=== PATIENT | male | born 1990 | race Caucasian/White ===

== ENCOUNTER 2016-09-15 17:40 | Inpatient (IN) | payer OTHER ==
[2016-09-15 18:27] VITALS: BMI 20.7
--- NOTE | 2016-09-15 18:40 | HP ---
COWS - Scale Resting Pulse: 2= SD 101-120 Sweatin=Flushed/Facial Moisture Restless Observation: 1= Difficult to Sit Still Pupil Size: 2= Moderately Dilated Bone or Joint Aches: 2= Severe Diffuse Aches Runny Nose/ Eye Tearin= Runny Nose/Eyes GI Upset > 30mins: 2= Nausea/Diarrhea Tremor Observation: 2= Slight Tremor Visible Yawning Observation: 1= 1-2x During Session Anxiety or Irritability: 2=Irritable/Anxious Goose Flesh Skin: 0=Smooth Skin COWS Score: 18 Admission ROS S - HPI Chief Complaint: withdrawal sx. Allergies/Adverse Reactions: Allergies Allergy/AdvReac Type Severity Reaction Status Date / Time No Known Allergies Allergy Verified 01/08/16 14:26 History of Present Illness: 26 y/o man with a long hx. of drug dependence is admitted for detox.Pt. has been in previous detox,denies significant period drug free. Exam Limitations: No Limitations - Ebola screening Have you traveled outside of the country in the last 21 days: No Have you had contact with anyone from an Ebola affected area: No Have you been sick,other than usual withdrawal symptoms: No Do you have a fever: No - Review of Systems Constitutional: Diaphoresis EENT: reports: Nose Congestion Respiratory: reports: No Symptoms reported Cardiac: reports: No Symptoms Reported GI: reports: Nausea, Abdominal cramping : reports: No Symptoms Reported Musculoskeletal: reports: Back Pain, Joint Pain, Muscle Pain Integumentary: reports: Sweating Neuro: reports: Tingling Endocrine: reports: No Symptoms Reported Hematology: reports: No Symptoms Reported Psychiatric: reports: No Sypmtoms Reported Other Systems: Reviewed and Negative Patient History - Patient Medical History Hx Anemia: No Hx Asthma: No Hx Chronic Obstructive Pulmonary Disease (COPD): No Hx Cancer: No Hx Cardiac Disorders: No Hx Congestive Heart Failure: No Hx Hypertension: No Hx Hypercholesterolemia: No Hx Pacemaker: No HX Cerebrovascular Accident: No Hx Seizures: No Hx Dementia: No Hx Diabetes: No Hx Gastrointestinal Disorders: No Hx Liver Disease: No Hx Genitourinary Disorders: No Hx Sexually Transmitted Disorders: No Hx Renal Disease (ESRD): No Hx Thyroid Disease: No Hx Human Immunodeficiency Virus (HIV): No Hx Hepatitis C: No Hx Depression: No Hx Suicide Attempt: No Hx Bipolar Disorder: No Hx Schizophrenia: No - Patient Surgical History Past Surgical History: Yes Hx Neurologic Surgery: No Hx Cataract Extraction: No Hx Cardiac Surgery: No Hx Lung Surgery: No Hx Breast Surgery: No Hx Breast Biopsy: No Hx Abdominal Surgery: No Hx Appendectomy: No Hx Cholecystectomy: No Hx Genitourinary Surgery: No Hx Section: No Hx Orthopedic Surgery: No Other Surgical History: HERNIA REPAIR AT AGE 3 Anesthesia Reaction: No - PPD History Previous Implant?: Yes Documented Results: Negative w/proof Implanted On Prior [facility] Admission?: Yes Date: 01/10/16 Results: 0 mm PPD to be Administered?: No - Smoking Cessation Smoking history: Current every day smoker Have you smoked in the past 12 months: Yes Aproximately how many cigarettes per day: 20 Hx Chewing Tobacco Use: No Initiated information on smoking cessation: Yes 'Breaking Loose' booklet given: 09/15/16 - Substance & Tx. History Hx Alcohol Use: No Hx Substance Use: Yes Substance Use Type: Heroin Hx Substance Use Treatment: Yes (Detox) - Substances Abused Heroin Route: Injection Frequency: Daily Amount used: 20 bags Age of first use: 26 (Started June 2016) Date of Last Use: 09/15/16 Oxycontin Route: Oral Amount used: 450mg Age of first use: 21 Family Disease History - Family Disease History Family Disease History: Diabetes: Father, Heart Disease: Grandparent (HTN, MELANOMA?,ALCOHOL), [place]: Grandparent Admission Physical Exam BHS - Vital Signs Vital Signs: Vital Signs - 24 hr 09/15/16 18:22 Temperature 97.9 F Pulse Rate 118 H Respiratory 16 Rate Blood Pressure 109/74 - Physical General Appearance: Yes: Sweating, Anxious HEENTM: Yes: Nasal Congestion, Rhinorrhea Respiratory: Yes: Chest Non-Tender, Lungs Clear, Normal Breath Sounds Neck: Yes: Supple Breast: Yes: Breast Exam Deferred Cardiology: Yes: Regular Rhythm, Regular Rate, S1, S2 Abdominal: Yes: Normal Bowel Sounds, Non Tender, Soft Genitourinary: Yes: Within Normal Limits Back: Yes: Within Normal Limits Musculoskeletal: Yes: full range of Motion Extremities: Yes: Tremors Neurological: Yes: Fully Oriented, Alert Integumentary: Yes: Diaphoresis Lymphatic: Yes: Within Normal Limits - Diagnostic (1) Nicotine dependence Current Visit: Yes Status: Acute Qualifiers: Nicotine product type: cigarettes Substance use status: uncomplicated Qualified Code(s): F17.210 - Nicotine dependence, cigarettes, uncomplicated (2) Opioid dependence with withdrawal Current Visit: Yes Status: Acute Cleared for Admission [facility] - Detox or Rehab [facility] Level of Care: Medically Managed Detox Regimen/Protocol: Methadone [facility] Breath Alcohol Content Breath Alcohol Content: 0 Urine Drug Screen - Results Drug Screen Negative: No Urine Drug Screen Results: OPI-Opiates, MDMA-Ecstasy
[2016-09-15] MEDS ORDERED: LOPERAMIDE HCL 2 MG CAPSULE PO PRN (18:49)
[2016-09-15] MEDS ORDERED: NICOTINE POLACRILEX 2 MG GUM BC PRN (18:49)
[2016-09-15] MEDS ORDERED: diphenhydrAMINE HCL 50 MG CAPSULE PO PRN (18:49)
[2016-09-15] MEDS ORDERED: hydrOXYzine PAMOATE 50 MG CAPSULE (FP) PO PRN (18:49)
[2016-09-15] MEDS ORDERED: IBUPROFEN 400 MG TABLET (FP) PO PRN (18:49)
[2016-09-15] MEDS ORDERED: guaiFENesin/D-METHORPHAN HB 10 ML UNIT-DOSE CUPS PO PRN (18:49)
[2016-09-15] MEDS ORDERED: MENTHOL/PHENOL 1 EACH UD MM PRN (18:49)
[2016-09-15] MEDS ORDERED: P-EPHED 60MG/TRIPROLIDI 2.5MG TABLET PO PRN (18:49)
[2016-09-15] MEDS ORDERED: MAGNESIUM HYDROX 2400MG/30ML ORAL SUSPENSION 30 ML CUP PO PRN (18:49)
[2016-09-15] MEDS ORDERED: MAGNESIUM CITRATE 300 ML BOTTLE PO PRN (18:49)
[2016-09-15] MEDS ORDERED: MAG HYDROX/AL HYDROX/SIMETH 30 ML UNIT-DOSE CUP PO PRN (18:49)
[2016-09-15] MEDS ORDERED: ACETAMINOPHEN 325 MG TABLET (FP) PO PRN (18:49)
[2016-09-15] MEDS ORDERED: METHADONE HCL 10 MG TABLET (FOR DETOX USE ONLY) PO ONE ×2 (18:49→23:00)
[2016-09-15] MEDS: diazePAM 5 MG TABLET PO PRN (20:14)
[2016-09-15] MEDS: NICOTINE 21 MG/24 HOURS TOPICAL PATCH TD SCH (20:17)
[2016-09-15] MEDS ORDERED: THIAMINE HCL 100 MG TABLET (FP) PO SCH (22:00)
[2016-09-16] MEDS: diazePAM 5 MG TABLET PO PRN ×2 (05:25→10:21)
[2016-09-16] MEDS ORDERED: ONDANSETRON *ODT* 4 MG TABLET SL PRN (09:38)
[2016-09-16 09:56] VITALS: BP 131/75; PULSE 83; TEMP 97.3
[2016-09-16] MEDS ORDERED: METHADONE HCL 10 MG TABLET (FOR DETOX USE ONLY) PO ONE (10:00)
[2016-09-16] MEDS ORDERED: PRENATAL VITAMINS W/ FOLIC ACID TABLET (FP) PO SCH (10:00)
[2016-09-16] MEDS ORDERED: ONDANSETRON *ODT* 4 MG TABLET SL ONE (10:00)
[2016-09-16] MEDS: NICOTINE 21 MG/24 HOURS TOPICAL PATCH TD SCH (10:24)
[2016-09-16 10:50] LABS: URINE APPEARANCE CLEAR; URINE BILIRUBIN NEGATIVE (NEGATIVE); URINE BLOOD NEGATIVE (NEGATIVE); URINE COLOR AMBER; URINE GLUCOSE (UA) NEGATIVE (NEGATIVE); URINE KETONE NEGATIVE (NEGATIVE); URINE LEUK ESTERASE NEGATIVE (NEGATIVE); URINE NITRITE NEGATIVE (NEGATIVE); URINE PROTEIN NEGATIVE (NEGATIVE); URINE UROBILINOGEN 4.0 E.U/dl E.U./dl (0.2-1.0)
[2016-09-16 10:54] LABS: MCH 30.9 pg (25.7-33.7); MCHC 34.2 g/dl (32.0-35.9); MEAN CELL VOLUME 90.5 fl (80-96); MEAN PLT VOLUME 10.5 fl (7.5-11.1); PLATELET COUNT 99 K/MM3 (134-434); RDW 13.2 % (11.9-15.9)
[2016-09-16 11:15] LABS: ALBUMIN 3.7 g/dl (3.4-5.0); ALK PHOS 57 U/L (45-117); ANION GAP 7 (8-16); BILIRUBIN,TOTAL 0.8 mg/dL (0.2-1.0); CALCIUM 8.5 mg/dL (8.5-10.1); CO2 32 mmol/L (21-32); COCKROFT - GAULT 119; CREATININE 0.9 mg/dL (0.7-1.3); GLUCOSE,RANDOM 93 mg/dL (74-106); SGOT/AST 27 U/L (15-37); SGPT/ALT 32 U/L (12-78); TOT PROT 7.2 g/dl (6.4-8.2)
--- NOTE | 2016-09-16 11:58 | PN ---
BHS COWS - Scale Resting Pulse: 1= [place] 81-100 Sweatin=Flushed/Facial Moisture Restless Observation: 1= Difficult to Sit Still Pupil Size: 0= Normal to Room Light Bone or Joint Aches: 2= Severe Diffuse Aches Runny Nose/ Eye Tearin= Runny Nose/Eyes GI Upset > 30mins: 2= Nausea/Diarrhea Tremor Observation of Outstretched Hands: 2= Slight Tremor Visible Yawning Observation: 1= 1-2x During Session Anxiety or Irritability: 2=Irritable/Anxious Goose Flesh Skin: 0=Smooth Skin COWS Score: 15 BHS Progress Note (SOAP) Subjective: Anxiety,tremors,sweating,interrupted sleep,restless,nausea/vomiting Objective: 09/16/16 11:57 Vital Signs - 8 hr 09/16/16 09/16/16 09/16/16 04:32 06:00 09:55 Temperature 97.7 F 97.3 F L Pulse Rate 87 83 Respiratory 18 18 16 Rate Blood Pressure 131/78 131/75 Laboratory Tests 09/16/16 09/16/16 09/16/16 07:45 07:45 10:42 WBC 5.0 RBC 5.07 Hgb 15.7 Hct 45.9 MCV 90.5 MCHC 34.2 RDW 13.2 Plt Count 99 L MPV 10.5 Sodium 141 Potassium 3.9 Chloride 102 Carbon Dioxide 32 Anion Gap 7 L BUN 9 D Creatinine 0.9 Creat Clearance w eGFR > 60 Random Glucose 93 Calcium 8.5 Total Bilirubin 0.8 D AST 27 D ALT 32 D Alkaline Phosphatase 57 D Total Protein 7.2 Albumin 3.7 Urine Color Beti Urine Appearance Clear Urine pH 6.0 Urine Protein Negative Urine Glucose (UA) Negative Urine Ketones Negative Urine Blood Negative Urine Nitrite Negative Urine Bilirubin Negative Urine Urobilinogen 4.0 e.u/dl Ur Leukocyte Esterase Negative labs noted Assessment: 09/16/16 11:58 Withdrawal sx Plan: Continue detox
--- NOTE | 2016-09-16 16:36 | EKG ---
Test Reason : Blood Pressure : / mmHG Vent. Rate : 059 BPM Atrial Rate : 059 BPM P-R Int : 118 ms QRS Dur : 088 ms QT Int : 440 ms P-R-T Axes : 020 054 021 degrees QTc Int : 435 ms SINUS BRADYCARDIA OTHERWISE NORMAL ECG NO PREVIOUS ECGS AVAILABLE Confirmed by JANE MONTEMAYOR MD ([id number]) on 09/16/2016 4:36:28 PM Referred By: Confirmed By:JANE MONTEMAYOR MD
--- NOTE | 2016-09-16 18:34 | DS ---
[facility] Detox Discharge Summary Admission Date: 09/15/16 Discharge Date: 09/16/16 - History Present History: Opioid Dependence Pertinent Past History: Denies - Physical Exam Results Vital Signs: Vital Signs Temperature 97.3 F L 09/16/16 09:55 Pulse Rate 83 09/16/16 09:55 Respiratory Rate 16 09/16/16 09:55 Blood Pressure 131/75 09/16/16 09:55 O2 Sat by Pulse Oximetry (%) Pertinent Admission Physical Exam Findings: Withdrawal sx. Laboratory Last Values WBC 5.0 K/mm3 (4.0-10.0) 09/16/16 07:45 RBC 5.07 M/mm3 (4.00-5.60) 09/16/16 07:45 Hgb 15.7 GM/dL (11.7-16.9) 09/16/16 07:45 Hct 45.9 % (35.4-49) 09/16/16 07:45 MCV 90.5 fl (80-96) 09/16/16 07:45 MCHC 34.2 g/dl (32.0-35.9) 09/16/16 07:45 RDW 13.2 % (11.9-15.9) 09/16/16 07:45 Plt Count 99 K/MM3 (134-434) L 09/16/16 07:45 MPV 10.5 fl (7.5-11.1) 09/16/16 07:45 Sodium 141 mmol/L (136-145) 09/16/16 07:45 Potassium 3.9 mmol/L (3.5-5.1) 09/16/16 07:45 Chloride 102 mmol/L (98-107) 09/16/16 07:45 Carbon Dioxide 32 mmol/L (21-32) 09/16/16 07:45 Anion Gap 7 (8-16) L 09/16/16 07:45 BUN 9 mg/dL (7-18) D 09/16/16 07:45 Creatinine 0.9 mg/dL (0.7-1.3) 09/16/16 07:45 Creat Clearance w eGFR > 60 (>60) 09/16/16 07:45 Random Glucose 93 mg/dL (74-106) 09/16/16 07:45 Calcium 8.5 mg/dL (8.5-10.1) 09/16/16 07:45 Total Bilirubin 0.8 mg/dL (0.2-1.0) D 09/16/16 07:45 AST 27 U/L (15-37) D 09/16/16 07:45 ALT 32 U/L (12-78) D 09/16/16 07:45 Alkaline Phosphatase 57 U/L (45-117) D 09/16/16 07:45 Total Protein 7.2 g/dl (6.4-8.2) 09/16/16 07:45 Albumin 3.7 g/dl (3.4-5.0) 09/16/16 07:45 Urine Color Beti 09/16/16 10:42 Urine Appearance Clear 09/16/16 10:42 Urine pH 6.0 (5.0-8.0) 09/16/16 10:42 Ur Specific [place] 1.020 (1.005-1.025) 09/16/16 10:42 Urine Protein Negative (NEGATIVE) 09/16/16 10:42 Urine Glucose (UA) Negative (NEGATIVE) 09/16/16 10:42 Urine Ketones Negative (NEGATIVE) 09/16/16 10:42 Urine Blood Negative (NEGATIVE) 09/16/16 10:42 Urine Nitrite Negative (NEGATIVE) 09/16/16 10:42 Urine Bilirubin Negative (NEGATIVE) 09/16/16 10:42 Urine Urobilinogen 4.0 e.u/dl E.U./dl (0.2-1.0) 09/16/16 10:42 Ur Leukocyte Esterase Negative (NEGATIVE) 09/16/16 10:42 RPR Titer Nonreactive (NONREACTIVE) 09/16/16 07:45 labs noted - Treatment Patient has Accepted a Rehab Referral to: IOP - Medication Discharge Medications: Ambulatory Orders NK [No Known Home Medication] 01/08/16 - Diagnosis (1) Nicotine dependence Status: Acute Qualifiers: Nicotine product type: cigarettes Substance use status: uncomplicated Qualified Code(s): F17.210 - Nicotine dependence, cigarettes, uncomplicated (2) Opioid dependence with withdrawal Status: Acute (3) Drug-induced mood disorder Status: Acute
[2016-09-17] MEDS ORDERED: METHADONE HCL 5 MG TABLET (FOR DETOX USE ONLY) PO ONE (10:00)
[2016-09-18] MEDS ORDERED: METHADONE HCL 5 MG TABLET (FOR DETOX USE ONLY) PO ONE (10:00)
[2016-09-19] MEDS ORDERED: METHADONE HCL 10 MG TABLET (FOR DETOX USE ONLY) PO ONE (10:00)
[2016-09-20] MEDS ORDERED: METHADONE HCL 5 MG TABLET (FOR DETOX USE ONLY) PO ONE (06:00)
== END 2016-09-16 11:17 | disposition left against medical advice (07) | DRG 770 ==
LOC: YASAS 17:40 → Y6N 19:30
PROVIDERS: ADMIT Internal Medicine; ATTEND Internal Medicine
PROC: HZ2ZZZZ Detoxification Services for Substance Abuse Treatment (ICD-10-PCS; principal; 2016-09-16)
DX: F11.23 Opioid dependence with withdrawal (principal); F17.210 Nicotine dependence, cigarettes, uncomplicated; F19.24 Other psychoactive substance dependence with psychoactive substance-induced mood disorder
CPT/HCPCS: 36415; 80053; 81003; 85027; 86593; 93005; 93010

== ENCOUNTER 2016-12-26 15:09 | Inpatient (IN) | payer OTHER ==
[2016-12-26 16:34] VITALS: BMI 20.9
--- NOTE | 2016-12-26 19:38 | HP ---
COWS - Scale Resting Pulse: 0= [place] 80 or Below Sweatin= Chills/Flushing Restless Observation: 1= Difficult to Sit Still Pupil Size: 0= Normal to Room Light Bone or Joint Aches: 2= Severe Diffuse Aches Runny Nose/ Eye Tearin= Runny Nose/Eyes GI Upset > 30mins: 1= Stomach Cramp Tremor Observation: 2= Slight Tremor Visible Yawning Observation: 0= None Anxiety or Irritability: 2=Irritable/Anxious Goose Flesh Skin: 3=Piloerection COWS Score: 14 Admission ROS S - [facility] Chief Complaint: WITHDRAWAL SX Allergies/Adverse Reactions: Allergies Allergy/AdvReac Type Severity Reaction Status Date / Time No Known Allergies Allergy Verified 01/08/16 14:26 History of Present Illness: 26 YEARS OLD MALE WITH LONG HISTORY OF OPIATE NICOTINE DEPENDENCE DENIES MEDICAL ISSUE DENIES MENTAL ILLNESS IS ADMITTED TO DETOX Exam Limitations: No Limitations - Ebola screening Have you traveled outside of the country in the last 21 days: No Have you had contact with anyone from an Ebola affected area: No Have you been sick,other than usual withdrawal symptoms: No Do you have a fever: No - Review of Systems Constitutional: Loss of Appetite, Changes in sleep, Unintentional Wgt. Loss, Unexplained wgt Loss EENT: reports: No Symptoms Reported Respiratory: reports: No Symptoms reported Cardiac: reports: No Symptoms Reported GI: reports: Nausea, Poor Appetite, Poor Fluid Intake, Abdominal cramping : reports: No Symptoms Reported Musculoskeletal: reports: Back Pain, Joint Pain, Muscle Pain, Neck Pain Integumentary: reports: Change in Color (BOTH INNER ELBOWS) Neuro: reports: Tremors Endocrine: reports: No Symptoms Reported Hematology: reports: No Symptoms Reported Psychiatric: reports: No Sypmtoms Reported, Judgement Intact, Mood/Affect Appropiate, Orientated x3 Other Systems: Reviewed and Negative Patient History - Patient Medical History Hx Anemia: No Hx Asthma: No Hx Chronic Obstructive Pulmonary Disease (COPD): No Hx Cancer: No Hx Cardiac Disorders: No Hx Congestive Heart Failure: No Hx Hypertension: No Hx Hypercholesterolemia: No Hx Pacemaker: No HX Cerebrovascular Accident: No Hx Seizures: No Hx Dementia: No Hx Diabetes: No Hx Gastrointestinal Disorders: No Hx Liver Disease: No Hx Genitourinary Disorders: No Hx Sexually Transmitted Disorders: No Hx Renal Disease (ESRD): No Hx Thyroid Disease: No Hx Human Immunodeficiency Virus (HIV): No Hx Hepatitis C: No Hx Depression: No Hx Suicide Attempt: No Hx Bipolar Disorder: No Hx Schizophrenia: No - Patient Surgical History Past Surgical History: Yes Hx Neurologic Surgery: No Hx Cataract Extraction: No Hx Cardiac Surgery: No Hx Lung Surgery: No Hx Breast Surgery: No Hx Breast Biopsy: No Hx Abdominal Surgery: No Hx Appendectomy: No Hx Cholecystectomy: No Hx Genitourinary Surgery: No Hx Orthopedic Surgery: No Other Surgical History: HERNIA REPAIR AT AGE 3 Anesthesia Reaction: No - PPD History Previous Implant?: Yes Documented Results: Positive w/proof Implanted On Prior [facility] Admission?: Yes Date: 01/10/16 Results: 0 mm PPD to be Administered?: Yes - Smoking Cessation Smoking history: Current every day smoker Have you smoked in the past 12 months: Yes Aproximately how many cigarettes per day: 20 Cigars Per Day: 0 Hx Chewing Tobacco Use: No Initiated information on smoking cessation: Yes 'Breaking Loose' booklet given: 12/26/16 - Substance & Tx. History Hx Alcohol Use: No Hx Substance Use: Yes Substance Use Type: Cocaine, Heroin Hx Substance Use Treatment: Yes (10/2016 [facility]) - Substances Abused Heroin Route: Injection Frequency: Daily Amount used: 3 bundles Age of first use: 26 Date of Last Use: 12/25/16 Family Disease History - Family Disease History Family Disease History: Diabetes: Father, Heart Disease: Grandparent (HTN, MELANOMA?,ALCOHOL), [place]: Grandparent Admission Physical Exam BHS - Vital Signs Vital Signs: Vital Signs - 24 hr 12/26/16 16:32 Temperature 98.1 F Pulse Rate 80 Respiratory 18 Rate Blood Pressure 109/76 - Physical General Appearance: Yes: Appropriately Dressed, Mild Distress, Thin, Tremorous, Irritable, Sweating, Anxious HEENTM: Yes: Hearing grossly Normal, Normal ENT Inspection, Normocephalic, Normal Voice Respiratory: Yes: Chest Non-Tender, Lungs Clear, Normal Breath Sounds, No Respiratory Distress, No Accessory Muscle Use Neck: Yes: Supple, Trachea in good position Breast: Yes: Breasts Symetrical Cardiology: Yes: Regular Rhythm, Regular Rate, S1, S2 Abdominal: Yes: Non Tender, Soft, Increased Bowel Sounds Genitourinary: Yes: Within Normal Limits Back: Yes: Normal Inspection Musculoskeletal: Yes: full range of Motion, Gait Steady, Back pain, Muscle Pain Extremities: Yes: Normal Range of Motion, Non-Tender, Tremors, Other (INNER ELBOWS) Neurological: Yes: Fully Oriented, Alert, Motor Strength 5/5, Normal Mood/Affect , Normal Response Integumentary: Yes: Warm, Track Reese Lymphatic: Yes: Within Normal Limits - Diagnostic (1) Nicotine dependence Current Visit: Yes Status: Acute Qualifiers: Nicotine product type: cigarettes Substance use status: in withdrawal Qualified Code(s): F17.213 - Nicotine dependence, cigarettes, with withdrawal (2) Opioid dependence with withdrawal Current Visit: Yes Status: Acute (3) Weight loss Current Visit: Yes Status: Acute Cleared for Admission [facility] - Detox or Rehab [facility] Level of Care: Medically Managed Detox Regimen/Protocol: Methadone [facility] Breath Alcohol Content Breath Alcohol Content: 0 Urine Drug Screen - Results Drug Screen Negative: No Urine Drug Screen Results: CARMELITA-Cocaine, OPI-Opiates
[2016-12-26] MEDS ORDERED: ACETAMINOPHEN 325 MG TABLET (FP) PO PRN (19:39)
[2016-12-26] MEDS ORDERED: NICOTINE 21 MG/24 HOURS TOPICAL PATCH TD PRN (19:39)
[2016-12-26] MEDS ORDERED: IBUPROFEN 400 MG TABLET (FP) PO PRN (19:39)
[2016-12-26] MEDS ORDERED: guaiFENesin/D-METHORPHAN HB 10 ML UNIT-DOSE CUPS PO PRN (19:39)
[2016-12-26] MEDS ORDERED: P-EPHED 60MG/TRIPROLIDI 2.5MG TABLET PO PRN (19:39)
[2016-12-26] MEDS ORDERED: MAGNESIUM CITRATE 300 ML BOTTLE PO PRN (19:39)
[2016-12-26] MEDS ORDERED: METHADONE HCL 10 MG TABLET (FOR DETOX USE ONLY) PO ONE ×2 (19:39→23:00)
[2016-12-26] MEDS ORDERED: NICOTINE POLACRILEX 4 MG GUM BC PRN (19:39)
[2016-12-26] MEDS ORDERED: MENTHOL/PHENOL 1 EACH UD MM PRN (19:39)
[2016-12-26] MEDS ORDERED: MAG HYDROX/AL HYDROX/SIMETH 30 ML UNIT-DOSE CUP PO PRN (19:39)
[2016-12-26] MEDS ORDERED: LOPERAMIDE HCL 2 MG CAPSULE PO PRN (19:39)
[2016-12-26] MEDS ORDERED: MAGNESIUM HYDROX 2400MG/30ML ORAL SUSPENSION 30 ML CUP PO PRN (19:39)
[2016-12-26] MEDS: diazePAM 5 MG TABLET PO PRN (19:55)
[2016-12-26] MEDS: THIAMINE HCL 100 MG TABLET (FP) PO SCH (22:02)
[2016-12-26] MEDS: diphenhydrAMINE HCL 50 MG CAPSULE PO PRN (22:02)
[2016-12-27 01:34] LABS: URINE APPEARANCE SLCLOUDY; URINE BILIRUBIN NEGATIVE (NEGATIVE); URINE BLOOD NEGATIVE (NEGATIVE); URINE COLOR YELLOW; URINE GLUCOSE (UA) NEGATIVE (NEGATIVE); URINE KETONE NEGATIVE (NEGATIVE); URINE LEUK ESTERASE NEGATIVE (NEGATIVE); URINE NITRITE NEGATIVE (NEGATIVE); URINE PROTEIN NEGATIVE (NEGATIVE); URINE UROBILINOGEN NEGATIVE mg/dL (0.2-1.0)
[2016-12-27] MEDS: diazePAM 5 MG TABLET PO PRN ×5 (05:21→22:10)
[2016-12-27 09:50] LABS: ALBUMIN 3.6 g/dl (3.4-5.0); ANION GAP 5 (8-16); BILIRUBIN,TOTAL 0.5 mg/dL (0.2-1.0); CALCIUM 8.7 mg/dL (8.5-10.1); CO2 32 mmol/L (21-32); CREATININE 0.8 mg/dL (0.7-1.3); GLUCOSE,RANDOM 76 mg/dL (74-106); TOT PROT 7.2 g/dl (6.4-8.2)
[2016-12-27 09:51] LABS: ALK PHOS 56 U/L (45-117); SGOT/AST 14 U/L (15-37); SGPT/ALT 25 U/L (12-78)
[2016-12-27 09:55] LABS: MCH 30.6 pg (25.7-33.7); MCHC 33.7 g/dl (32.0-35.9); MEAN CELL VOLUME 90.7 fl (80-96); MEAN PLT VOLUME 9.3 fl (7.5-11.1); PLATELET COUNT 165 K/MM3 (134-434); RDW 14.5 % (11.9-15.9); WHITE BLOOD COUNT 4.5 K/mm3 (4.0-10.0)
[2016-12-27] MEDS ORDERED: METHADONE HCL 10 MG TABLET (FOR DETOX USE ONLY) PO ONE (10:00)
[2016-12-27] MEDS: PRENATAL VITAMINS W/ FOLIC ACID TABLET (FP) PO SCH (10:07)
--- NOTE | 2016-12-27 10:32 | PN ---
BHS COWS - Scale Resting Pulse: 0= [place] 80 or Below Sweatin= Chills/Flushing Restless Observation: 3= Extraneous Movement Pupil Size: 2= Moderately Dilated Bone or Joint Aches: 4=Acute Joint/Muscle Pain Runny Nose/ Eye Tearin= Nasal Congestion GI Upset > 30mins: 1= Stomach Cramp Tremor Observation of Outstretched Hands: 1= Tremor [place], Not Seen Yawning Observation: 1= 1-2x During Session Anxiety or Irritability: 1=Feels Anxious/Irritable Goose Flesh Skin: 0=Smooth Skin COWS Score: 15 BHS Progress Note (SOAP) Subjective: ANXIETY, SWEATSCHILLS, TREMORS. Objective: 12/27/16 10:32 Vital Signs Temperature 97.7 F 12/27/16 09:52 Pulse Rate 99 H 12/27/16 09:52 Respiratory Rate 18 12/27/16 09:52 Blood Pressure 112/77 12/27/16 09:52 O2 Sat by Pulse Oximetry (%) Laboratory Last Values WBC 4.5 K/mm3 (4.0-10.0) 12/27/16 07:50 RBC 4.81 M/mm3 (4.00-5.60) 12/27/16 07:50 Hgb 14.7 GM/dL (11.7-16.9) 12/27/16 07:50 Hct 43.7 % (35.4-49) 12/27/16 07:50 MCV 90.7 fl (80-96) 12/27/16 07:50 MCH 30.6 pg (25.7-33.7) 12/27/16 07:50 MCHC 33.7 g/dl (32.0-35.9) 12/27/16 07:50 RDW 14.5 % (11.9-15.9) 12/27/16 07:50 Plt Count 165 K/MM3 (134-434) D 12/27/16 07:50 MPV 9.3 fl (7.5-11.1) D 12/27/16 07:50 Sodium 141 mmol/L (136-145) 12/27/16 07:50 Potassium 4.0 mmol/L (3.5-5.1) 12/27/16 07:50 Chloride 104 mmol/L (98-107) 12/27/16 07:50 Carbon Dioxide 32 mmol/L (21-32) 12/27/16 07:50 Anion Gap 5 (8-16) L 12/27/16 07:50 BUN 10 mg/dL (7-18) 12/27/16 07:50 Creatinine 0.8 mg/dL (0.7-1.3) 12/27/16 07:50 Creat Clearance w eGFR > 60 (>60) 12/27/16 07:50 Random Glucose 76 mg/dL (74-106) 12/27/16 07:50 Calcium 8.7 mg/dL (8.5-10.1) 12/27/16 07:50 Total Bilirubin 0.5 mg/dL (0.2-1.0) D 12/27/16 07:50 AST 14 U/L (15-37) L D 12/27/16 07:50 ALT 25 U/L (12-78) D 12/27/16 07:50 Alkaline Phosphatase 56 U/L (45-117) 12/27/16 07:50 Total Protein 7.2 g/dl (6.4-8.2) 12/27/16 07:50 Albumin 3.6 g/dl (3.4-5.0) 12/27/16 07:50 Urine Color Yellow 12/26/16 23:23 Urine Appearance Slcloudy 12/26/16 23:23 Urine pH 5.0 (5.0-8.0) 12/26/16 23:23 Ur Specific [place] 1.025 (1.005-1.025) 12/26/16 23:23 Urine Protein Negative (NEGATIVE) 12/26/16 23:23 Urine Glucose (UA) Negative (NEGATIVE) 12/26/16 23:23 Urine Ketones Negative (NEGATIVE) 12/26/16 23:23 Urine Blood Negative (NEGATIVE) 12/26/16 23:23 Urine Nitrite Negative (NEGATIVE) 12/26/16 23:23 Urine Bilirubin Negative (NEGATIVE) 12/26/16 23:23 Urine Urobilinogen Negative mg/dL (0.2-1.0) 12/26/16 23:23 Assessment: 12/27/16 10:32 WITHDRAWAL SX Plan: CONTINUE DETOX
[2016-12-27 12:59] LABS: HIV 1 & 2 AB NEGATIVE; HIV 1 AGp24 NEGATIVE
--- NOTE | 2016-12-27 13:25 | EKG ---
Test Reason : Blood Pressure : / mmHG Vent. Rate : 073 BPM Atrial Rate : 073 BPM P-R Int : 134 ms QRS Dur : 090 ms QT Int : 400 ms P-R-T Axes : 073 055 039 degrees QTc Int : 440 ms NORMAL SINUS RHYTHM NORMAL ECG WHEN COMPARED WITH ECG OF 15-SEP-2016 19:17, NO SIGNIFICANT CHANGE WAS FOUND Confirmed by ELIDIA STOVER MD ([id number]) on 12/27/2016 1:25:08 PM Referred By: Fabian Lemus Confirmed By:ELIDIA STOVER MD
[2016-12-27] MEDS: THIAMINE HCL 100 MG TABLET (FP) PO SCH (22:10)
[2016-12-27] MEDS: diphenhydrAMINE HCL 50 MG CAPSULE PO PRN (22:10)
[2016-12-28] MEDS: diazePAM 5 MG TABLET PO PRN ×5 (03:21→23:12)
[2016-12-28] MEDS: PRENATAL VITAMINS W/ FOLIC ACID TABLET (FP) PO SCH (09:27)
[2016-12-28] MEDS ORDERED: METHADONE HCL 5 MG TABLET (FOR DETOX USE ONLY) PO ONE (10:00)
--- NOTE | 2016-12-28 10:58 | PN ---
BHS COWS - Scale Resting Pulse: 1= [place] 81-100 Sweatin=Flushed/Facial Moisture Restless Observation: 1= Difficult to Sit Still Pupil Size: 0= Normal to Room Light Bone or Joint Aches: 1= Mild Discomfort Runny Nose/ Eye Tearin= Runny Nose/Eyes GI Upset > 30mins: 2= Nausea/Diarrhea Tremor Observation of Outstretched Hands: 2= Slight Tremor Visible Yawning Observation: 1= 1-2x During Session Anxiety or Irritability: 2=Irritable/Anxious Goose Flesh Skin: 0=Smooth Skin COWS Score: 14 BHS Progress Note (SOAP) Subjective: Anxiety,tremors,sweating,interrupted sleep,restless,muscle aches/spasm Objective: 12/28/16 10:57 Vital Signs - 8 hr 12/28/16 12/28/16 12/28/16 03:30 06:18 09:50 Temperature 98.6 F 97.9 F Pulse Rate 88 95 H Respiratory 18 18 20 Rate Blood Pressure 111/79 121/84 Laboratory Tests 12/26/16 12/27/16 12/27/16 23:23 07:50 07:50 WBC 4.5 RBC 4.81 Hgb 14.7 Hct 43.7 MCV 90.7 MCH 30.6 MCHC 33.7 RDW 14.5 Plt Count 165 D MPV 9.3 D Sodium Potassium Chloride Carbon Dioxide Anion Gap BUN Creatinine Creat Clearance w eGFR Random Glucose Calcium Total Bilirubin AST ALT Alkaline Phosphatase Total Protein Albumin Urine Color Yellow Urine Appearance Slcloudy Urine pH 5.0 Ur Specific [place] 1.025 Urine Protein Negative Urine Glucose (UA) Negative Urine Ketones Negative Urine Blood Negative Urine Nitrite Negative Urine Bilirubin Negative Urine Urobilinogen Negative RPR Titer Hepatitis C Antibody <0.1 HIV 1&2 Antibody Screen HIV P24 Antigen 12/27/16 12/27/16 12/27/16 07:50 07:50 07:50 WBC RBC Hgb Hct MCV MCH MCHC RDW Plt Count MPV Sodium 141 Potassium 4.0 Chloride 104 Carbon Dioxide 32 Anion Gap 5 L BUN 10 Creatinine 0.8 Creat Clearance w eGFR > 60 Random Glucose 76 Calcium 8.7 Total Bilirubin 0.5 D AST 14 L D ALT 25 D Alkaline Phosphatase 56 Total Protein 7.2 Albumin 3.6 Urine Color Urine Appearance Urine pH Ur Specific [place] Urine Protein Urine Glucose (UA) Urine Ketones Urine Blood Urine Nitrite Urine Bilirubin Urine Urobilinogen RPR Titer Nonreactive Hepatitis C Antibody HIV 1&2 Antibody Screen Negative HIV P24 Antigen Negative labs noted Assessment: 12/28/16 10:57 Withdrawal sx. Plan: Continue detox
[2016-12-28] MEDS: THIAMINE HCL 100 MG TABLET (FP) PO SCH (22:06)
[2016-12-28] MEDS: diphenhydrAMINE HCL 50 MG CAPSULE PO PRN (22:06)
[2016-12-29] MEDS: diazePAM 5 MG TABLET PO PRN ×4 (04:05→18:24)
[2016-12-29] MEDS ORDERED: METHADONE HCL 5 MG TABLET (FOR DETOX USE ONLY) PO ONE (10:00)
[2016-12-29] MEDS: PRENATAL VITAMINS W/ FOLIC ACID TABLET (FP) PO SCH (10:09)
--- NOTE | 2016-12-29 13:39 | PN ---
BHS Progress Note (SOAP) Subjective: Fatigue, Tremors, Interrupted sleep, Tremors. Objective: PT. A & O X 3, OBSERVED AMBULATING ON UNIT. NO ACUTE DISTRESS. 12/29/16 13:39 Vital Signs Temperature 98.1 F 12/29/16 10:21 Pulse Rate 94 H 12/29/16 10:21 Respiratory Rate 16 12/29/16 10:21 Blood Pressure 119/84 12/29/16 10:21 O2 Sat by Pulse Oximetry (%) Laboratory Tests 12/26/16 12/27/16 12/27/16 23:23 07:50 07:50 WBC 4.5 RBC 4.81 Hgb 14.7 Hct 43.7 MCV 90.7 MCH 30.6 MCHC 33.7 RDW 14.5 Plt Count 165 D MPV 9.3 D Sodium Potassium Chloride Carbon Dioxide Anion Gap BUN Creatinine Creat Clearance w eGFR Random Glucose Calcium Total Bilirubin AST ALT Alkaline Phosphatase Total Protein Albumin Urine Color Yellow Urine Appearance Slcloudy Urine pH 5.0 Ur Specific [place] 1.025 Urine Protein Negative Urine Glucose (UA) Negative Urine Ketones Negative Urine Blood Negative Urine Nitrite Negative Urine Bilirubin Negative Urine Urobilinogen Negative RPR Titer Hepatitis C Antibody <0.1 HIV 1&2 Antibody Screen HIV P24 Antigen 12/27/16 12/27/16 12/27/16 07:50 07:50 07:50 WBC RBC Hgb Hct MCV MCH MCHC RDW Plt Count MPV Sodium 141 Potassium 4.0 Chloride 104 Carbon Dioxide 32 Anion Gap 5 L BUN 10 Creatinine 0.8 Creat Clearance w eGFR > 60 Random Glucose 76 Calcium 8.7 Total Bilirubin 0.5 D AST 14 L D ALT 25 D Alkaline Phosphatase 56 Total Protein 7.2 Albumin 3.6 Urine Color Urine Appearance Urine pH Ur Specific [place] Urine Protein Urine Glucose (UA) Urine Ketones Urine Blood Urine Nitrite Urine Bilirubin Urine Urobilinogen RPR Titer Nonreactive Hepatitis C Antibody HIV 1&2 Antibody Screen Negative HIV P24 Antigen Negative LABS NOTED. Assessment: 12/29/16 13:40 WITHDRAWAL SYMPTOMS. Plan: CONTINUE DETOX.
[2016-12-29] MEDS: THIAMINE HCL 100 MG TABLET (FP) PO SCH (22:05)
[2016-12-29] MEDS: diphenhydrAMINE HCL 50 MG CAPSULE PO PRN (22:06)
[2016-12-30] MEDS ORDERED: METHADONE HCL 10 MG TABLET (FOR DETOX USE ONLY) PO ONE (10:00)
[2016-12-30] MEDS: PRENATAL VITAMINS W/ FOLIC ACID TABLET (FP) PO SCH (10:05)
--- NOTE | 2016-12-30 15:52 | PN ---
BHS Progress Note (SOAP) Subjective: Interrupted sleep (requesting ambien), sweating, anxious Objective: 12/30/16 15:50 Last Vital Signs Temp Pulse Resp BP Pulse Ox 97.4 F L 81 16 108/76 12/30/16 09:54 12/30/16 09:54 12/30/16 09:54 12/30/16 09:54 Laboratory Tests 12/26/16 12/27/16 12/27/16 23:23 07:50 07:50 WBC 4.5 RBC 4.81 Hgb 14.7 Hct 43.7 MCV 90.7 MCH 30.6 MCHC 33.7 RDW 14.5 Plt Count 165 D MPV 9.3 D Sodium Potassium Chloride Carbon Dioxide Anion Gap BUN Creatinine Creat Clearance w eGFR Random Glucose Calcium Total Bilirubin AST ALT Alkaline Phosphatase Total Protein Albumin Urine Color Yellow Urine Appearance Slcloudy Urine pH 5.0 Ur Specific [place] 1.025 Urine Protein Negative Urine Glucose (UA) Negative Urine Ketones Negative Urine Blood Negative Urine Nitrite Negative Urine Bilirubin Negative Urine Urobilinogen Negative RPR Titer Hepatitis C Antibody <0.1 HIV 1&2 Antibody Screen HIV P24 Antigen 12/27/16 12/27/16 12/27/16 07:50 07:50 07:50 WBC RBC Hgb Hct MCV MCH MCHC RDW Plt Count MPV Sodium 141 Potassium 4.0 Chloride 104 Carbon Dioxide 32 Anion Gap 5 L BUN 10 Creatinine 0.8 Creat Clearance w eGFR > 60 Random Glucose 76 Calcium 8.7 Total Bilirubin 0.5 D AST 14 L D ALT 25 D Alkaline Phosphatase 56 Total Protein 7.2 Albumin 3.6 Urine Color Urine Appearance Urine pH Ur Specific [place] Urine Protein Urine Glucose (UA) Urine Ketones Urine Blood Urine Nitrite Urine Bilirubin Urine Urobilinogen RPR Titer Nonreactive Hepatitis C Antibody HIV 1&2 Antibody Screen Negative HIV P24 Antigen Negative Labs noted Assessment: 12/30/16 15:51 Withdrawal symptoms Plan: Continue detox Ambien 10mg PO qhs prn
[2016-12-30] MEDS ORDERED: ZOLPIDEM TARTRATE 10 MG TABLET (PARK CARE ONLY) PO PRN (22:00)
[2016-12-30] MEDS: THIAMINE HCL 100 MG TABLET (FP) PO SCH (22:03)
[2016-12-31] MEDS: diphenhydrAMINE HCL 50 MG CAPSULE PO PRN (00:41)
[2016-12-31 05:51] VITALS: BP 110/73; PULSE 81; TEMP 97.3
[2016-12-31] MEDS ORDERED: METHADONE HCL 5 MG TABLET (FOR DETOX USE ONLY) PO ONE (06:00)
[2016-12-31] MEDS: PRENATAL VITAMINS W/ FOLIC ACID TABLET (FP) PO SCH (10:03)
--- NOTE | 2016-12-31 11:08 | DS ---
[facility] Detox Discharge Summary Admission Date: 12/26/16 Discharge Date: 12/31/16 - History Present History: Opioid Dependence Additional Comments: PATIENT GOING TO [facility] FOR AFTER CARE. PATIENT DISCHARGED FROM DETOX UNIT IN STABLE MEDICAL CONDITION. - Physical Exam Results Vital Signs: Vital Signs Temperature 97.3 F L 12/31/16 05:51 Pulse Rate 81 12/31/16 05:51 Respiratory Rate 18 12/31/16 05:51 Blood Pressure 110/73 12/31/16 05:51 O2 Sat by Pulse Oximetry (%) Pertinent Admission Physical Exam Findings: WITHDRAWAL SYMPTOMS. Laboratory Tests 12/26/16 12/27/16 12/27/16 23:23 07:50 07:50 WBC 4.5 RBC 4.81 Hgb 14.7 Hct 43.7 MCV 90.7 MCH 30.6 MCHC 33.7 RDW 14.5 Plt Count 165 D MPV 9.3 D Sodium Potassium Chloride Carbon Dioxide Anion Gap BUN Creatinine Creat Clearance w eGFR Random Glucose Calcium Total Bilirubin AST ALT Alkaline Phosphatase Total Protein Albumin Urine Color Yellow Urine Appearance Slcloudy Urine pH 5.0 Ur Specific [place] 1.025 Urine Protein Negative Urine Glucose (UA) Negative Urine Ketones Negative Urine Blood Negative Urine Nitrite Negative Urine Bilirubin Negative Urine Urobilinogen Negative RPR Titer Hepatitis C Antibody <0.1 HIV 1&2 Antibody Screen HIV P24 Antigen 12/27/16 12/27/16 12/27/16 07:50 07:50 07:50 WBC RBC Hgb Hct MCV MCH MCHC RDW Plt Count MPV Sodium 141 Potassium 4.0 Chloride 104 Carbon Dioxide 32 Anion Gap 5 L BUN 10 Creatinine 0.8 Creat Clearance w eGFR > 60 Random Glucose 76 Calcium 8.7 Total Bilirubin 0.5 D AST 14 L D ALT 25 D Alkaline Phosphatase 56 Total Protein 7.2 Albumin 3.6 Urine Color Urine Appearance Urine pH Ur Specific [place] Urine Protein Urine Glucose (UA) Urine Ketones Urine Blood Urine Nitrite Urine Bilirubin Urine Urobilinogen RPR Titer Nonreactive Hepatitis C Antibody HIV 1&2 Antibody Screen Negative HIV P24 Antigen Negative LABS NOTED. - Treatment Hospital Course: Detox Protocol Followed, Detoxed Safely, Responded well, Discharged Condition Good, Rehab Referral Accepted Patient has Accepted a Rehab Referral to: [facility]. - Medication Discharge Medications: Ambulatory Orders NK [No Known Home Medication] 01/08/16 - Diagnosis (1) Nicotine dependence Current Visit: Yes Status: Chronic Qualifiers: Nicotine product type: cigarettes Substance use status: in withdrawal Qualified Code(s): F17.213 - Nicotine dependence, cigarettes, with withdrawal (2) Opioid dependence with withdrawal Current Visit: Yes Status: Acute (3) Weight loss Current Visit: Yes Status: Acute - AMA Did Patient Leave Against Medical Advice: No
== END 2016-12-31 11:15 | disposition home or self-care (01) | DRG 773 ==
LOC: YASAS 15:09 → Y3N 17:50
PROVIDERS: ADMIT Internal Medicine; ATTEND Internal Medicine
PROC: HZ2ZZZZ Detoxification Services for Substance Abuse Treatment (ICD-10-PCS; principal; 2016-12-26)
DX: F11.23 Opioid dependence with withdrawal (principal); F19.24 Other psychoactive substance dependence with psychoactive substance-induced mood disorder; R63.4 Abnormal weight loss; Z68.21 Body mass index [BMI] 21.0-21.9, adult
CPT/HCPCS: 36415; 80053; 81003; 85027; 86593; 86803; 87389; 93005; 93010

== ENCOUNTER 2018-12-24 11:36 | Inpatient (IN) | payer OTHER ==
[2018-12-24 12:43] VITALS: BMI 23.3
[2018-12-24] MEDS ORDERED: METHADONE HCL 10 MG TABLET (FOR DETOX USE ONLY) PO ONE (13:45)
--- NOTE | 2018-12-24 14:07 | HP ---
COWS - Scale Resting Pulse: 1= [place] 81-100 Sweatin=Flushed/Facial Moisture Restless Observation: 1= Difficult to Sit Still Pupil Size: 0= Normal to Room Light Bone or Joint Aches: 2= Severe Diffuse Aches Runny Nose/ Eye Tearin= Nasal Congestion GI Upset > 30mins: 2= Nausea/Diarrhea Tremor Observation: 2= Slight Tremor Visible Yawning Observation: 0= None Anxiety or Irritability: 2=Irritable/Anxious Goose Flesh Skin: 0=Smooth Skin COWS Score: 13 CIWA Score - Admission Criteria OASAS Guidelines: Admission for Medically Managed Detox: Requires at least one of the followin. CIWA greater than 12 2. Seizures within the past 24 hours 3. Delirium tremens within the past 24 hours 4. Hallucinations within the past 24 hours 5. Acute intervention needed for co occurring medical disorder 6. Acute intervention needed for co occurring psychiatric disorder 7. Severe withdrawal that cannot be handled at a lower level of care (continued vomiting, continued diarrhea, abnormal vital signs) requiring intravenous medication and/or fluids 8. Admission ROS [facility] Chief Complaint: detox heroin Allergies/Adverse Reactions: Allergies Allergy/AdvReac Type Severity Reaction Status Date / Time No Known Allergies Allergy Verified 12/24/18 12:37 History of Present Illness: 28M pmh of polysubstance abuse(oxycodones, heroin, MJ) presenting for detox from Heroin. Wants to detox b/c father is going to surgery soon and mother is leaving for [facility]. Lost 50lbs in 2months. Daily heroin(IV), 4bundles; sometimes up 8bundles. Last usage was 0030. No OD'd. Blacked out a few days ago. Uses clean needles, doesn't share. Denies bacteremia, abscesses. Regular usage since 21y/o. First use at 16y/o. Hasn't used oxycodone for a while. Denies cocaine. Uses MJ a few times a month. Everyday smoker. Tried using klonopin for self-detox. Has detox'd >10x. Has rehab'd 3x. Longest duration of substance free from [id number]. Relapsed 2months ago. Has home narcan. Had suboxone prescribed from clinic, ys prior but since stopped. Denies methadone as outpatient. Lives with parents in home. 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 Exam Limitations: No Limitations - Ebola screening Have you traveled outside of the country in the last 21 days: No Have you had contact with anyone from an Ebola affected area: No - Review of Systems Constitutional: Unintentional Wgt. Loss (50lbs in 2mo) EENT: reports: Nose Congestion. denies: Recent change in vision Respiratory: denies: Cough, Wheezing Cardiac: denies: Chest Pain, Palpitations GI: reports: Constipated, Nausea : denies: Dysuria, Frequency Musculoskeletal: reports: Back Pain, Other (RUE distal upper arm soft-tissue swelling) Neuro: denies: Headache, Seizure, Dizziness Patient History - Patient Medical History Hx Anemia: No Hx Asthma: No Hx Chronic Obstructive Pulmonary Disease (COPD): No Hx Cancer: No Hx Cardiac Disorders: No Hx Congestive Heart Failure: No Hx Hypertension: No Hx Hypercholesterolemia: No Hx Pacemaker: No HX Cerebrovascular Accident: No Hx Seizures: No Hx Dementia: No Hx Diabetes: No Hx Gastrointestinal Disorders: No Hx Liver Disease: No Hx Genitourinary Disorders: No Hx Sexually Transmitted Disorders: No Hx Renal Disease (ESRD): No Hx Thyroid Disease: No Hx Human Immunodeficiency Virus (HIV): No Hx Hepatitis C: No Hx Depression: No Hx Suicide Attempt: No Hx Bipolar Disorder: No Hx Schizophrenia: No - Patient Surgical History Past Surgical History: Yes Hx Neurologic Surgery: No Hx Cataract Extraction: No Hx Cardiac Surgery: No Hx Lung Surgery: No Hx Breast Surgery: No Hx Breast Biopsy: No Hx Abdominal Surgery: No Hx Appendectomy: No Hx Cholecystectomy: No Hx Genitourinary Surgery: No Hx Section: No Hx Orthopedic Surgery: No Other Surgical History: HERNIA REPAIR AT AGE 3 Anesthesia Reaction: No - PPD History Date: 12/28/16 Results: 0 mm - Smoking Cessation Smoking history: Current every day smoker Have you smoked in the past 12 months: Yes Aproximately how many cigarettes per day: 20 Cigars Per Day: 0 Hx Chewing Tobacco Use: No Initiated information on smoking cessation: No - Substances abused Heroin Substance route: Inhalation Frequency: Daily Amount used: 3 bundle Age of first use: 24 Date of last use: 12/23/18 Family Disease History - Family Disease History Family Disease History: Diabetes: Father, Heart Disease: Grandparent (HTN, MELANOMA?,ALCOHOL), CA: Grandparent, Other: Mother (lyme disease) Admission Physical Exam S - Vital Signs Vital Signs: Vital Signs - 24 hr 12/24/18 12:38 Temperature 98.0 F Pulse Rate 81 Respiratory 20 Rate Blood Pressure 129/74 - Physical General Appearance: Yes: No Apparent Distress, Anxious HEENTM: Yes: Normocephalic. No: Pale Conjunctivae R, Pale Conjunctivae L, Scleral Ictenus R, Scleral Ictenus L Respiratory: Yes: Chest Non-Tender, Lungs Clear, Normal Breath Sounds, No Respiratory Distress, No Accessory Muscle Use. No: Rales, Rhonchi Neck: Yes: Supple Cardiology: Yes: Regular Rhythm, Regular Rate, S1, S2. No: Irregularly Irregular Abdominal: No: Distended, Tenderness, Mass Musculoskeletal: No: Joint Stiffness Extremities: Yes: Other (RUE distal UE, with mild edema to tripceps tendon. LUE with indurated antecubital lesion, nonerythematous, nonTTP) Neurological: Yes: Fully Oriented, Alert Integumentary: Yes: Dry, Warm Inpatient Rehab Admission - Rehab Decision to Admit Inpatient rehab admission?: No
[2018-12-24] MEDS ORDERED: MAGNESIUM CITRATE 300 ML BOTTLE PO PRN (14:45)
[2018-12-24] MEDS ORDERED: MENTHOL/PHENOL 1 EACH UD MM PRN (14:45)
[2018-12-24] MEDS ORDERED: MAG HYDROX/AL HYDROX/SIMETH 30 ML UNIT-DOSE CUP PO PRN (14:45)
[2018-12-24] MEDS ORDERED: hydrOXYzine PAMOATE 25 MG CAPSULE (FP) PO PRN (14:45)
[2018-12-24] MEDS ORDERED: IBUPROFEN 400 MG TABLET (FP) PO PRN (14:45)
[2018-12-24] MEDS ORDERED: ACETAMINOPHEN 325 MG TABLET (FP) PO PRN ×2 (14:45)
[2018-12-24] MEDS ORDERED: MAGNESIUM HYDROX 2400MG/30ML ORAL SUSPENSION 30 ML CUP PO PRN (14:45)
[2018-12-24] MEDS ORDERED: BISMUTH SUBSALICYLATE 262 MG/15 ML BTL PO PRN (14:45)
[2018-12-24] MEDS ORDERED: NICOTINE POLACRILEX 2 MG GUM BUC PRN (14:45)
[2018-12-24] MEDS ORDERED: cloNIDine HCL 0.1 MG TABLET PO PRN (14:45)
--- NOTE | 2018-12-24 14:48 | PN ---
Teaching Attending Note Name of Resident: Abimael Osei ATTENDING PHYSICIAN STATEMENT I saw and evaluated the patient. I reviewed the resident's note and discussed the case with the resident. I agree with the resident's findings and plan as documented. SUBJECTIVE:28 yo here for heroin detox. Uses 2-8 bundles/day> no OD hx. Pt has a long h/o of using heroin- would like to stop. Has tried Suboxone in the past- but did not like it. OBJECTIVE: Vital Signs - 24 hr 12/24/18 12:38 Temperature 98.0 F Pulse Rate 81 Respiratory 20 Rate Blood Pressure 129/74 alert anf oriented mildly tremulous ASSESSMENT AND PLAN: pt here for heroin detox- will start methadone detox protocol d/w pt good nutrition, suboxone and methadone MAT.
[2018-12-24 16:30] LABS: HEMOGLOBIN 15.4 GM/dL (11.7-16.9); MCH 31.3 pg (25.7-33.7); MCHC 34.3 g/dl (32.0-35.9); MEAN CELL VOLUME 91.1 fl (80-96); MEAN PLT VOLUME 9.6 fl (7.5-11.1); PLATELET COUNT 149 K/MM3 (134-434); RBC 4.94 M/mm3 (4.00-5.60); RDW 13.4 % (11.9-15.9); WHITE BLOOD COUNT 6.2 K/mm3 (4.0-10.0)
[2018-12-24 16:34] LABS: BILIRUBIN,TOTAL 0.4 mg/dL (0.2-1); BLOOD UREA NITROGEN 9.2 mg/dL (7-18); CALCIUM 9.1 mg/dL (8.5-10.1); CREATININE 0.9 mg/dL (0.55-1.3); TOT PROT 7.4 g/dl (6.4-8.2)
[2018-12-24] MEDS: clonazePAM 0.5 MG TABLET PO PRN (17:28)
[2018-12-24] MEDS: THIAMINE HCL 100 MG TABLET (FP) PO SCH (21:58)
[2018-12-24] MEDS: MELATONIN 5 MG TABLETS PO PRN (21:59)
[2018-12-24] MEDS: METHOCARBAMOL 500 MG TABLET PO PRN (21:59)
[2018-12-25] MEDS ORDERED: METHADONE HCL 5 MG TABLET (FOR DETOX USE ONLY) ONE (09:05)
[2018-12-25] MEDS ORDERED: METHADONE HCL 10 MG TABLET (FOR DETOX USE ONLY) ONE (09:05)
[2018-12-25] MEDS ORDERED: METHADONE (DETOX) 20 MG, METHADONE (DETOX) 5 MG PO ONE (10:00)
[2018-12-25] MEDS ORDERED: PRENATAL VITAMINS W/ FOLIC ACID TABLET (FP) PO SCH (10:00)
[2018-12-25] MEDS: clonazePAM 0.5 MG TABLET PO PRN ×2 (10:03→19:27)
--- NOTE | 2018-12-25 12:42 | PN ---
BHS COWS - Scale Resting Pulse: 0= SD 80 or Below Sweatin= Chills/Flushing Restless Observation: 0= Sits Still Pupil Size: 1= Pupils >than Normal Bone or Joint Aches: 1= Mild Discomfort Runny Nose/ Eye Tearin= Runny Nose/Eyes GI Upset > 30mins: 0= None Tremor Observation of Outstretched Hands: 2= Slight Tremor Visible Yawning Observation: 0= None Anxiety or Irritability: 1=Feels Anxious/Irritable Goose Flesh Skin: 3=Piloerection COWS Score: 11 BHS Progress Note (SOAP) Subjective: doing well with methadone detox regimen mild body ache less irritable Objective: 12/25/18 12:41 Vital Signs Temperature 97.8 F 12/25/18 09:09 Pulse Rate 63 12/25/18 09:09 Respiratory Rate 18 12/25/18 09:09 Blood Pressure 94/67 12/25/18 09:09 O2 Sat by Pulse Oximetry (%) Laboratory Last Values WBC 6.2 K/mm3 (4.0-10.0) 12/24/18 14:05 RBC 4.94 M/mm3 (4.00-5.60) 12/24/18 14:05 Hgb 15.4 GM/dL (11.7-16.9) 12/24/18 14:05 Hct 45.0 % (35.4-49) 12/24/18 14:05 MCV 91.1 fl (80-96) 12/24/18 14:05 MCH 31.3 pg (25.7-33.7) 12/24/18 14:05 MCHC 34.3 g/dl (32.0-35.9) 12/24/18 14:05 RDW 13.4 % (11.9-15.9) 12/24/18 14:05 Plt Count 149 K/MM3 (134-434) 12/24/18 14:05 MPV 9.6 fl (7.5-11.1) 12/24/18 14:05 Sodium 139 mmol/L (136-145) 12/24/18 14:05 Potassium 4.0 mmol/L (3.5-5.1) 12/24/18 14:05 Chloride 102 mmol/L (98-107) 12/24/18 14:05 Carbon Dioxide 30 mmol/L (21-32) 12/24/18 14:05 Anion Gap 7 MMOL/L (8-16) L 12/24/18 14:05 BUN 9.2 mg/dL (7-18) 12/24/18 14:05 Creatinine 0.9 mg/dL (0.55-1.3) 12/24/18 14:05 Est GFR (CKD-EPI)AfAm 132.37 12/24/18 14:05 Est GFR (CKD-EPI)NonAf 114.21 12/24/18 14:05 Random Glucose 90 mg/dL (74-106) 12/24/18 14:05 Calcium 9.1 mg/dL (8.5-10.1) 12/24/18 14:05 Total Bilirubin 0.4 mg/dL (0.2-1) 12/24/18 14:05 AST 17 U/L (15-37) 12/24/18 14:05 ALT 28 U/L (13-61) 12/24/18 14:05 Alkaline Phosphatase 54 U/L (45-117) 12/24/18 14:05 Total Protein 7.4 g/dl (6.4-8.2) 12/24/18 14:05 Albumin 4.0 g/dl (3.4-5.0) 12/24/18 14:05 RPR Titer Nonreactive (NONREACTIVE) 12/24/18 14:05 lab noted Assessment: 12/25/18 12:42 opiate withdrawal sx Plan: continue methadone detox regimen
[2018-12-25] MEDS: THIAMINE HCL 100 MG TABLET (FP) PO SCH (21:59)
[2018-12-25] MEDS: MELATONIN 5 MG TABLETS PO PRN (21:59)
[2018-12-25] MEDS: METHOCARBAMOL 500 MG TABLET PO PRN (21:59)
[2018-12-26 09:04] VITALS: BP 101/59; PULSE 74; TEMP 98.2
[2018-12-26] MEDS ORDERED: METHADONE HCL 10 MG TABLET (FOR DETOX USE ONLY) PO ONE (10:00)
--- NOTE | 2018-12-26 18:50 | DS ---
[facility] Detox Discharge Summary Admission Date: 12/24/18 Discharge Date: 12/26/18 - History Present History: Opioid Dependence Additional Comments: PATIENT REPORTS THAT HE HAS A PERSONAL FAMILY MATTER TO ATTEND TO AND THAT HE DOES NOT WISH TO REMAIN TO COMPLETE DETOX REGIMEN. RISKS OF LEAVING DETOX UNIT AGAINST MEDICAL ADVICE AND PRIOR TO COMPLETION OF DETOX REGIMEN EXPLAINED TO PATIENT. PATIENT ADVISED TO GO IMMEDIATELY TO NEAREST ER SHOULD ANY INTOLERABLE WITHDRAWAL / DETOX SYMPTOMS DEVELOP AT ANY TIME. PATIENT VERBALIZED UNDERSTANDING OF ALL INFORMATION / RECOMMENDATIONS PRESENTED TO HIM PRIOR TO DEPARTURE FROM DETOX UNIT. PATIENT LEFT DETOX UNIT IN STABLE MEDICAL CONDITION. Pertinent Past History: Nicotine Dependence. - Physical Exam Results Vital Signs: Vital Signs Temperature 98.2 F 12/26/18 09:03 Pulse Rate 74 12/26/18 09:03 Respiratory Rate 18 12/26/18 09:03 Blood Pressure 101/59 L 12/26/18 09:03 O2 Sat by Pulse Oximetry (%) Pertinent Admission Physical Exam Findings: WITHDRAWAL SYMPTOMS. Laboratory Tests 12/24/18 12/24/18 12/24/18 14:05 14:05 14:05 WBC 6.2 RBC 4.94 Hgb 15.4 Hct 45.0 MCV 91.1 MCH 31.3 MCHC 34.3 RDW 13.4 Plt Count 149 MPV 9.6 Sodium 139 Potassium 4.0 Chloride 102 Carbon Dioxide 30 Anion Gap 7 L BUN 9.2 Creatinine 0.9 Est GFR (CKD-EPI)AfAm 132.37 Est GFR (CKD-EPI)NonAf 114.21 Random Glucose 90 Calcium 9.1 Total Bilirubin 0.4 AST 17 ALT 28 Alkaline Phosphatase 54 Total Protein 7.4 Albumin 4.0 RPR Titer Nonreactive LABS NOTED. - Medication Discharge Medications: Ambulatory Orders NK [No Known Home Medication] 01/08/16 - Diagnosis (1) Opioid dependence with withdrawal Status: Acute (2) Nicotine dependence Status: Chronic Qualifiers: Nicotine product type: cigarettes Substance use status: in withdrawal Qualified Code(s): F17.213 - Nicotine dependence, cigarettes, with withdrawal - AMA Did Patient Leave Against Medical Advice: Yes (PT. HAD PERSONAL MATTER TO ATTEND TO AND DID NOT WISH TO COMPLETE DETOX.) [facility] COWS - Scale Resting Pulse: 0= [place] 80 or Below Sweatin= No chills or Flushing Restless Observation: 1= Difficult to Sit Still Pupil Size: 0= Normal to Room Light Bone or Joint Aches: 1= Mild Discomfort Runny Nose/ Eye Tearin= Nasal Congestion GI Upset > 30mins: 0= None Tremor Observation of Outstretched Hands: 0= None Yawning Observation: 1= 1-2x During Session Anxiety or Irritability: 2=Irritable/Anxious Goose Flesh Skin: 0=Smooth Skin COWS Score: 6
[2018-12-27] MEDS ORDERED: METHADONE (DETOX) 10 MG, METHADONE (DETOX) 5 MG PO ONE (10:00)
[2018-12-28] MEDS ORDERED: METHADONE HCL 10 MG TABLET (FOR DETOX USE ONLY) PO ONE (10:00)
[2018-12-29] MEDS ORDERED: METHADONE HCL 5 MG TABLET (FOR DETOX USE ONLY) PO ONE (06:00)
== END 2018-12-26 10:01 | disposition left against medical advice (07) | DRG 770 ==
LOC: YASAS 11:36 → Y3N 15:09
PROVIDERS: ADMIT Surgery; ATTEND Surgery
PROC: HZ2ZZZZ Detoxification Services for Substance Abuse Treatment (ICD-10-PCS; principal; 2018-12-24)
DX: F11.23 Opioid dependence with withdrawal (principal); F17.210 Nicotine dependence, cigarettes, uncomplicated
CPT/HCPCS: 36415; 80053; 85027; 86480; 86593; J0735

== ENCOUNTER 2020-01-01 14:54 | Inpatient (IN) | payer OTHER ==
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
[2020-01-01 16:25] VITALS: BMI 29.5
--- NOTE | 2020-01-01 16:40 | HP ---
CIWA Score Nausea/Vomitin-Mild Nausea/No Vomiting Muscle Tremors: 4-Moderate,w/Arms Extend Anxiety: 1-Mildly Anxious Agitation: 1-Slight > Activity Paroxysmal Sweats: 3 (Increased facial moisture) Orientation: 0-Oriented Tacttile Disturbances: 0-None Auditory Disturbances: 0-None Visual Disturbances: 0-None Headache: 3-Moderate (Throbbing "5") CIWA-Ar Total Score: 13 - Admission Criteria OASAS Guidelines: Admission for Medically Managed Detox: Requires at least one of the followin. CIWA greater than 12 2. Seizures within the past 24 hours 3. Delirium tremens within the past 24 hours 4. Hallucinations within the past 24 hours 5. Acute intervention needed for co occurring medical disorder 6. Acute intervention needed for co occurring psychiatric disorder 7. Severe withdrawal that cannot be handled at a lower level of care (continued vomiting, continued diarrhea, abnormal vital signs) requiring intravenous medication and/or fluids 8. Admitting History and Physical - Smoking History Smoking history: Current every day smoker Have you smoked in the past 12 months: Yes Aproximately how many cigarettes per day: 20 - Alcohol/Substance Use Hx Alcohol Use: No Admission ROS [facility] Chief Complaint: Here to get off alcohol and stop having withdrawal. Allergies/Adverse Reactions: Allergies Allergy/AdvReac Type Severity Reaction Status Date / Time No Known Allergies Allergy Verified 01/01/20 17:56 History of Present Illness: 29 yo presents w/ alcohol intoxication w/ withdrawal symptoms and benzo and marijuana use disorder. Denies seizures, blackouts or overdoses. Patient states he can stay 6 days. Is aware oxycodone will not be given for pain. Alcohol use began at age15. Currently drinks 1.75 L vodka daily. States last drink over night till early this a.m. Benzo (mixed) use began at age 6 months ago. Currently using 12 mg/day/PO - Last used yesterday. Marijuana use began at age 12. Smokes 1 joint/week. Nicotine use began at age 10. Smokes 1/2 PPD> Heroin use from -. Last used 12/2018. Not on a program. PMHx: Heart burn, MHHx: Depression. Denies thoughts of harming self or others. Does not see a MH Provider SHx:Domiciled. Unemployed. Denies legal issues Patient Name: Roshan Cronin Date: 1990 Address: [address] [place] [id number] Sex: Male Rx Written Rx Dispensed Drug Quantity Days Supply Prescriber Name Payment Method Dispenser 12/16/2019 12/17/2019 oxycodone hcl 5 mg tablet 9 3 Erik Torres ([employer] WORK[employer]) [facility] #[id number] 10/01/2019 10/01/2019 chlordiazepoxide 25 mg capsule 3 1 Sendy Recinos MD [facility] #[id number] 10/01/2019 10/01/2019 chlordiazepoxide 25 mg capsule 8 4 Erik Oneal MD [facility] #[id number] 03/03/2019 03/03/2019 clonazepam 2 mg tablet 20 10 Erik Oneal MD [facility] #[id number] Exam Limitations: No Limitations - Ebola screening Have you traveled outside of the country in the last 21 days: No (COVID - rapid test this a.m. ) Have you had contact with anyone from an Ebola affected area: No Have you been sick,other than usual withdrawal symptoms: No Do you have a fever: No - Review of Systems Constitutional: Chills, Diaphoresis, Changes in sleep (Difficulty falling and staying asleep - self medicating w/ Klonopin) EENT: reports: No Symptoms Reported Respiratory: reports: SOB with Exertion Cardiac: reports: No Symptoms Reported GI: reports: Diarrhea (last this - soft/watery - greenish), Nausea, Vomiting (this a.m.), Indigestion (heart burn r/t drinking) : reports: No Symptoms Reported Musculoskeletal: reports: Back Pain (Intermittent chronic pins and needles/achy back pain "7". Pain unrelated to activity. Improves w/ hot bath.) Integumentary: reports: No Symptoms Reported Neuro: reports: Headache (Throbbing WRIGHT - (L) side of head - unrelated to injury - "5"), Tremors Endocrine: reports: Increased Thirst Hematology: reports: No Symptoms Reported Psychiatric: reports: Judgement Intact, Orientated x3, Anxious, Depressed (Denies thoughts of harming self or others) Patient History - Patient Medical History Hx Anemia: No Hx Asthma: No Hx Chronic Obstructive Pulmonary Disease (COPD): No Hx Cancer: No Hx Cardiac Disorders: No Hx Congestive Heart Failure: No Hx Hypertension: No Hx Hypercholesterolemia: No Hx Pacemaker: No HX Cerebrovascular Accident: No Hx Seizures: No Hx Dementia: No Hx Diabetes: No Hx Gastrointestinal Disorders: No Hx Liver Disease: No Hx Genitourinary Disorders: No Hx Sexually Transmitted Disorders: No Hx Renal Disease (ESRD): No Hx Thyroid Disease: No Hx Human Immunodeficiency Virus (HIV): No Hx Hepatitis C: No Hx Depression: No Hx Suicide Attempt: No Hx Bipolar Disorder: No Hx Schizophrenia: No - Patient Surgical History Past Surgical History: Yes Hx Neurologic Surgery: No Hx Cataract Extraction: No Hx Cardiac Surgery: No Hx Lung Surgery: No Hx Breast Surgery: No Hx Breast Biopsy: No Hx Abdominal Surgery: No Hx Appendectomy: No Hx Cholecystectomy: No Hx Genitourinary Surgery: No Hx Section: No Hx Orthopedic Surgery: No Other Surgical History: HERNIA REPAIR AT AGE 3 Anesthesia Reaction: No - PPD History Previous Implant?: Yes Documented Results: Negative w/proof Implanted On Prior [facility] Admission?: Yes Date: 12/28/16 Results: 0 mm PPD to be Administered?: Yes - Smoking Cessation Smoking history: Current every day smoker Have you smoked in the past 12 months: Yes Aproximately how many cigarettes per day: 10 Cigars Per Day: 0 Hx Chewing Tobacco Use: No Initiated information on smoking cessation: Yes 'Breaking Loose' booklet given: 01/01/20 - Substance & Tx. History Hx Alcohol Use: Yes Hx Substance Use: Yes Substance Use Type: Alcohol, Heroin, Marijuana, Opiates Hx Substance Use Treatment: Yes (detox, rehab) - Substances abused Alcohol Substance route: Oral Frequency: Daily Amount used: liquor- 2 litres, beer- 1 six pk Age of first use: 15 Date of last use: 01/01/20 Alprazolam (Xanax) Substance route: Oral Frequency: Daily Amount used: 10mg Age of first use: 29 Date of last use: 12/30/19 Admission Physical Exam BHS - Vital Signs Vital Signs: Vital Signs - 24 hr 01/01/20 16:23 Temperature 97.7 F Pulse Rate 127 H Respiratory 17 Rate Blood Pressure 154/93 - Physical General Appearance: Yes: Nourished, Mild Distress, Intoxicated (MICHAEL: 0.056), Tremorous, Sweating (Increased facial moisture), Anxious HEENTM: Yes: EOMI, Hearing grossly Normal, Normocephalic, Normal Voice, KRISTINE, Thrush (Whitish patches pharyngeal area.) Respiratory: Yes: Lungs Clear, Normal Breath Sounds, No Respiratory Distress Neck: Yes: No masses,lesions,Nodules, Supple Breast: Yes: Breast Exam Deferred Cardiology: Yes: Regular Rhythm, S1, S2, Tachycardia (HR: 124) Abdominal: Yes: Normal Bowel Sounds, Non Tender, Flat, Soft Genitourinary: Yes: Within Normal Limits Back: Yes: Normal Inspection Musculoskeletal: Yes: full range of Motion, Gait Steady Extremities: Yes: Normal Capillary Refill, Tremors, Other (Abrasion (R) leg below knee/roger area - w/ scab - approx 9 cm) Neurological: Yes: division service manager II-XII NML intact, Fully Oriented, Alert, Motor Strength 5/5 Integumentary: Yes: Normal Color, Warm, Moist (Increased facial moisture), Other (decreased skin turgor) Lymphatic: Yes: Within Normal Limits - Diagnostic (1) Alcohol dependence with withdrawal, uncomplicated Current Visit: Yes Status: Acute (2) Sedative, hypnotic or anxiolytic dependence with withdrawal, uncomplicated Current Visit: Yes Status: Acute (3) Cannabis dependence, uncomplicated Current Visit: Yes Status: Acute (4) Abrasion Current Visit: Yes Status: Chronic (5) Thrush, oral Current Visit: Yes Status: Acute (6) Nicotine dependence Current Visit: Yes Status: Chronic Qualifiers: Nicotine product type: cigarettes Substance use status: uncomplicated Isrrael lified Code(s): F17.210 - Nicotine dependence, cigarettes, uncomplicated (7) Dehydration symptoms Current Visit: Yes Status: Acute (8) Acid reflux Current Visit: Yes Status: Chronic Qualifiers: Esophagitis presence: without esophagitis Qualified Code(s): K21.9 - Gastro-esophageal reflux disease without esophagitis Cleared for Admission S - Detox or Rehab [facility] Level of Care: Medically Managed Detox Regimen/Protocol: Librium Claeared for Rehab Admission: No Breathalyzer - Breathalyzer Breathalyzer: 0.056 Urine Drug Screen - Test Device Lot number: [id number] Expiration date: 11/16/21 - Control Is test valid?: Yes - Results Drug screen NEGATIVE: No Urine drug screen results: THC-Marijuana, BZO-Benzodiazepines Inpatient Rehab Admission - Rehab Decision to Admit Inpatient rehab admission?: No
[2020-01-01] MEDS ORDERED: MENTHOL/PHENOL 1 EACH UD MM PRN (16:59)
[2020-01-01] MEDS ORDERED: ACETAMINOPHEN 325 MG TABLET (FP) PO PRN ×2 (16:59)
[2020-01-01] MEDS ORDERED: NICOTINE POLACRILEX 2 MG GUM BUC PRN (16:59)
[2020-01-01] MEDS ORDERED: MAGNESIUM HYDROX 2400MG/30ML ORAL SUSPENSION 30 ML CUP PO PRN (16:59)
[2020-01-01] MEDS ORDERED: MAGNESIUM CITRATE 300 ML BOTTLE PO PRN (16:59)
[2020-01-01] MEDS ORDERED: BISMUTH SUBSALICYLATE 524 MG/30 ML UD PO PRN (16:59)
[2020-01-01] MEDS ORDERED: ONDANSETRON *ODT* 4 MG TABLET SL PRN (16:59)
[2020-01-01] MEDS ORDERED: MAG HYDROX/AL HYDROX/SIMETH 30 ML UNIT-DOSE CUP PO PRN (16:59)
[2020-01-01] MEDS ORDERED: chlordiazePOXIDE HCL 25 MG CAPSULE PO ONE (16:59)
[2020-01-01] MEDS ORDERED: chlordiazePOXIDE HCL 25 MG CAPSULE PO PRN (16:59)
[2020-01-01] MEDS ORDERED: METHOCARBAMOL 500 MG TABLET PO PRN (16:59)
[2020-01-01] MEDS ORDERED: IBUPROFEN 400 MG TABLET (FP) PO PRN (16:59)
[2020-01-01] MEDS: hydrOXYzine PAMOATE 25 MG CAPSULE (FP) PO PRN (18:46)
[2020-01-01] MEDS: MELATONIN 5 MG TABLETS PO SCH (22:03)
[2020-01-01] MEDS: THIAMINE HCL 100 MG TABLET (FP) PO SCH (22:03)
[2020-01-01] MEDS: BACITRACIN 15 GM TUBE TOPICAL OINTMENT TP SCH (22:09)
[2020-01-01] MEDS: chlordiazePOXIDE HCL 25 MG CAPSULE PO SCH (22:20)
[2020-01-02] MEDS: chlordiazePOXIDE HCL 25 MG CAPSULE PO SCH ×4 (05:07→22:26)
[2020-01-02] MEDS: hydrOXYzine PAMOATE 25 MG CAPSULE (FP) PO PRN ×2 (05:09→10:25)
--- NOTE | 2020-01-02 09:04 | EKG ---
Test Reason : Blood Pressure : / mmHG Vent. Rate : 115 BPM Atrial Rate : 115 BPM P-R Int : 128 ms QRS Dur : 092 ms QT Int : 346 ms P-R-T Axes : 061 021 028 degrees QTc Int : 478 ms SINUS TACHYCARDIA OTHERWISE NORMAL ECG WHEN COMPARED WITH ECG OF 26-DEC-2016 19:57, VENT. RATE HAS INCREASED BY 42 BPM Confirmed by Corinna Schulz ([id number]) on 01/02/2020 9:04:01 AM Referred By: Confirmed By:Corinna Schulz
[2020-01-02 09:22] LABS: HEMATOCRIT 51.2 % (35.4-49); HEMOGLOBIN 17.5 GM/dL (11.7-16.9); MCH 33.7 pg (25.7-33.7); MCHC 34.3 g/dl (32.0-35.9); MEAN CELL VOLUME 98.3 fl (80-96); MEAN PLT VOLUME 8.8 fl (7.5-11.1); PLATELET COUNT 168 K/MM3 (134-434); RBC 5.21 M/mm3 (4.00-5.60); RDW 13.8 % (11.9-15.9); WHITE BLOOD COUNT 4.2 K/mm3 (4.0-10.0)
[2020-01-02 09:28] LABS: BILIRUBIN,TOTAL 1.7 mg/dL (0.2-1); BLOOD UREA NITROGEN 7.9 mg/dL (7-18); CALCIUM 8.6 mg/dL (8.5-10.1); CREATININE 1.2 mg/dL (0.55-1.3); POTASSIUM 3.1 mmol/L (3.5-5.1); TOT PROT 7.7 g/dl (6.4-8.2)
[2020-01-02] MEDS: NICOTINE 14 MG/24 HOURS TOPICAL PATCH TD SCH (10:21)
[2020-01-02] MEDS: PRENATAL VITAMINS W/ FOLIC ACID TABLET (FP) PO SCH (10:21)
[2020-01-02] MEDS: PANTOPRAZOLE 40 MG TABLET PO SCH (10:21)
[2020-01-02] MEDS: BACITRACIN 15 GM TUBE TOPICAL OINTMENT TP SCH (11:37)
--- NOTE | 2020-01-02 14:16 | PN ---
[facility] CIWA - CIWA Score Nausea/Vomitin-No Nausea/No Vomiting Muscle Tremors: 3 Anxiety: 3 Agitation: 2 Paroxysmal Sweats: 3 Orientation: 0-Oriented Tacttile Disturbances: 0-None Auditory Disturbances: 1-Very Mild Visual Disturbances: 0-None Headache: 0-None Present CIWA-Ar Total Score: 12 S Progress Note (SOAP) Subjective: Complaints of anxiety, tremors, agitation, noise sensitivity, and sweats. Objective: 01/02/20 14:13 Vital Signs 01/02/20 01/02/20 09:15 12:42 Temperature 97.7 F 97.6 F Pulse Rate 94 H 94 H Respiratory 18 18 Rate Blood Pressure 134/81 141/85 O2 Sat by Pulse 99 99 Oximetry (%) Laboratory Last Values WBC 4.2 K/mm3 (4.0-10.0) 01/02/20 07:45 RBC 5.21 M/mm3 (4.00-5.60) 01/02/20 07:45 Hgb 17.5 GM/dL (11.7-16.9) H 01/02/20 07:45 Hct 51.2 % (35.4-49) H 01/02/20 07:45 MCV 98.3 fl (80-96) H 01/02/20 07:45 MCH 33.7 pg (25.7-33.7) 01/02/20 07:45 MCHC 34.3 g/dl (32.0-35.9) 01/02/20 07:45 RDW 13.8 % (11.9-15.9) 01/02/20 07:45 Plt Count 168 K/MM3 (134-434) 01/02/20 07:45 MPV 8.8 fl (7.5-11.1) 01/02/20 07:45 Sodium 140 mmol/L (136-145) 01/02/20 07:45 Potassium 3.1 mmol/L (3.5-5.1) L 01/02/20 07:45 Chloride 98 mmol/L (98-107) 01/02/20 07:45 Carbon Dioxide 36 mmol/L (21-32) H 01/02/20 07:45 Anion Gap 6 MMOL/L (8-16) L 01/02/20 07:45 BUN 7.9 mg/dL (7-18) 01/02/20 07:45 Creatinine 1.2 mg/dL (0.55-1.3) 01/02/20 07:45 Est GFR (CKD-EPI)AfAm 92.83 01/02/20 07:45 Est GFR (CKD-EPI)NonAf 80.09 01/02/20 07:45 Random Glucose 95 mg/dL (74-106) 01/02/20 07:45 Calcium 8.6 mg/dL (8.5-10.1) 01/02/20 07:45 Total Bilirubin 1.7 mg/dL (0.2-1) H 01/02/20 07:45 AST 85 U/L (15-37) H 01/02/20 07:45 ALT 111 U/L (13-61) H 01/02/20 07:45 Alkaline Phosphatase 77 U/L (45-117) 01/02/20 07:45 Total Protein 7.7 g/dl (6.4-8.2) 01/02/20 07:45 Albumin 4.0 g/dl (3.4-5.0) 01/02/20 07:45 Syphilis Serology Non-reactive (NONREACTIVE) 01/02/20 07:45 COVID-19 (DUSTIN) Not detected (Not Detected) 01/01/20 18:20 Labs noted with hypokalemia Assessment: 01/02/20 14:14 Alert and oriented x 3, in no acute respiratory distress. Full ROM, ambulating in unit without assistance. Skin warm to touch without any lesions. Withdrawal symptoms. Hypokalemia. Plan: Continue detox protocol. Replace potassium, repeat BMP.
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
[2020-01-02] MEDS: POTASSIUM CHLORIDE TABS 20 MEQ TABLET.ER (FP) PO SCH (15:31)
[2020-01-02] MEDS ORDERED: chlordiazePOXIDE HCL 10 MG CAPSULE PO PRN (17:42)
[2020-01-02] MEDS ORDERED: chlordiazePOXIDE HCL 25 MG CAPSULE PO SCH (18:00)
[2020-01-02] MEDS: THIAMINE HCL 100 MG TABLET (FP) PO SCH (22:25)
[2020-01-02] MEDS: BACITRACIN 0.9 GM PACKET TP SCH (22:26)
[2020-01-02] MEDS: MELATONIN 5 MG TABLETS PO SCH (22:27)
[2020-01-02] MEDS: QUEtiapine FUMARATE 50 MG TABLET PO SCH (22:27)
[2020-01-03] MEDS ORDERED: chlordiazePOXIDE HCL 25 MG CAPSULE PO SCH (05:00)
[2020-01-03] MEDS: chlordiazePOXIDE HCL 25 MG CAPSULE PO SCH ×3 (05:05→17:57)
[2020-01-03] MEDS: NICOTINE 14 MG/24 HOURS TOPICAL PATCH TD SCH (10:47)
[2020-01-03] MEDS: BACITRACIN 0.9 GM PACKET TP SCH ×2 (10:47→23:27)
[2020-01-03] MEDS: POTASSIUM CHLORIDE TABS 20 MEQ TABLET.ER (FP) PO SCH (10:48)
[2020-01-03] MEDS: PANTOPRAZOLE 40 MG TABLET PO SCH (10:48)
[2020-01-03] MEDS: PRENATAL VITAMINS W/ FOLIC ACID TABLET (FP) PO SCH (10:48)
--- NOTE | 2020-01-03 14:05 | PN ---
[facility] CIWA - CIWA Score Nausea/Vomitin-Mild Nausea/No Vomiting Muscle Tremors: 2 Anxiety: 2 Agitation: 2 Paroxysmal Sweats: 2 Orientation: 0-Oriented Tacttile Disturbances: 0-None Auditory Disturbances: 0-None Visual Disturbances: 0-None Headache: 0-None Present CIWA-Ar Total Score: 9 S Progress Note (SOAP) Subjective: Sweating, interrupted sleep. Patient requesting early discharge for tomorrow morning at 0800 or later in the day. Objective: 01/03/20 14:00 Last Vital Signs Temp Pulse Resp BP Pulse Ox 97.9 F 85 17 155/80 99 01/03/20 08:39 01/03/20 08:39 01/03/20 08:39 01/03/20 08:39 01/03/20 08:39 Elevated b/p noted Laboratory Tests 01/01/20 01/02/20 01/02/20 18:20 07:45 07:45 WBC 4.2 RBC 5.21 Hgb 17.5 H Hct 51.2 H MCV 98.3 H MCH 33.7 MCHC 34.3 RDW 13.8 Plt Count 168 MPV 8.8 Sodium 140 Potassium 3.1 L Chloride 98 Carbon Dioxide 36 H Anion Gap 6 L BUN 7.9 Creatinine 1.2 Est GFR (CKD-EPI)AfAm 92.83 Est GFR (CKD-EPI)NonAf 80.09 Random Glucose 95 Calcium 8.6 Total Bilirubin 1.7 H AST 85 H ALT 111 H Alkaline Phosphatase 77 Total Protein 7.7 Albumin 4.0 Syphilis Serology COVID-19 (DUSTIN) Not detected 01/02/20 07:45 WBC RBC Hgb Hct MCV MCH MCHC RDW Plt Count MPV Sodium Potassium Chloride Carbon Dioxide Anion Gap BUN Creatinine Est GFR (CKD-EPI)AfAm Est GFR (CKD-EPI)NonAf Random Glucose Calcium Total Bilirubin AST ALT Alkaline Phosphatase Total Protein Albumin Syphilis Serology Non-reactive COVID-19 (DUSTIN) Labs reviewed: noted with elevated LFTs and low potassium level Assessment: 01/03/20 14:03 Withdrawal sxs Noted with elevated LFTs and hypokalemia Plan: Continue detox Encourage PO water intake Patient requesting discharge tomorrow possible in the afternoon after receiving his librium 10mg if ok with assigned medical provider Elevated LFTs: could be r/t alcoholism, repeat hepatic function panel Hypokalemia: supplemented, follow up on repeated serum K level
[2020-01-03] MEDS: THIAMINE HCL 100 MG TABLET (FP) PO SCH (22:14)
[2020-01-03] MEDS: QUEtiapine FUMARATE 50 MG TABLET PO SCH (22:14)
[2020-01-03] MEDS: chlordiazePOXIDE HCL 10 MG CAPSULE PO SCH (22:14)
[2020-01-03] MEDS: MELATONIN 5 MG TABLETS PO SCH (23:27)
[2020-01-04] MEDS ORDERED: chlordiazePOXIDE HCL 10 MG CAPSULE PO PRN
[2020-01-04] MEDS ORDERED: chlordiazePOXIDE HCL 10 MG CAPSULE PO SCH (05:00)
[2020-01-04] MEDS: chlordiazePOXIDE HCL 10 MG CAPSULE PO SCH (05:24)
--- NOTE | 2020-01-04 08:53 | DS ---
[facility] Detox Discharge Summary Admission Date: 01/01/20 Discharge Date: 01/04/20 - History Present History: Alcohol Dependence, Cannabis Dependence, Sedative Dependence - Physical Exam Results Vital Signs: Vital Signs Temperature 97.8 F 01/04/20 05:05 Pulse Rate 81 01/04/20 05:05 Respiratory Rate 18 01/04/20 05:05 Blood Pressure 130/78 01/04/20 05:05 O2 Sat by Pulse Oximetry (%) 96 01/04/20 05:05 Pertinent Admission Physical Exam Findings: Vital Signs Temperature 97.8 F 01/04/20 05:05 Pulse Rate 81 01/04/20 05:05 Respiratory Rate 18 01/04/20 05:05 Blood Pressure 130/78 01/04/20 05:05 O2 Sat by Pulse Oximetry (%) 96 01/04/20 05:05 Laboratory Tests 01/01/20 01/02/20 01/02/20 18:20 07:45 07:45 WBC 4.2 RBC 5.21 Hgb 17.5 H Hct 51.2 H MCV 98.3 H MCH 33.7 MCHC 34.3 RDW 13.8 Plt Count 168 MPV 8.8 Sodium 140 Potassium 3.1 L Chloride 98 Carbon Dioxide 36 H Anion Gap 6 L BUN 7.9 Creatinine 1.2 Est GFR (CKD-EPI)AfAm 92.83 Est GFR (CKD-EPI)NonAf 80.09 Random Glucose 95 Calcium 8.6 Total Bilirubin 1.7 H AST 85 H ALT 111 H Alkaline Phosphatase 77 Total Protein 7.7 Albumin 4.0 Syphilis Serology COVID-19 (DUSTIN) Not detected 01/02/20 07:45 WBC RBC Hgb Hct MCV MCH MCHC RDW Plt Count MPV Sodium Potassium Chloride Carbon Dioxide Anion Gap BUN Creatinine Est GFR (CKD-EPI)AfAm Est GFR (CKD-EPI)NonAf Random Glucose Calcium Total Bilirubin AST ALT Alkaline Phosphatase Total Protein Albumin Syphilis Serology Non-reactive COVID-19 (DUSTIN) aaox3 ambulating no acute distress lungs CTA - Treatment Hospital Course: Detox Protocol Followed, Detoxed Safely, Responded well, Discharged Condition Good, Rehab Referral Accepted - Medication Discharge Medications: Ambulatory Orders NK [No Known Home Medication] 01/08/16 - Diagnosis (1) Alcohol dependence with withdrawal, uncomplicated Current Visit: Yes Status: Chronic (2) History of posttraumatic stress disorder (PTSD) Current Visit: Yes Status: Acute (3) Opioid dependence with withdrawal Current Visit: Yes Status: Acute (4) Sedative, hypnotic or anxiolytic dependence with withdrawal, uncomplicated Current Visit: Yes Status: Acute (5) Thrush, oral Current Visit: Yes Status: Acute (6) Abrasion Current Visit: Yes Status: Chronic (7) Acid reflux Current Visit: Yes Status: Chronic Qualifiers: Esophagitis presence: without esophagitis Qualified Code(s): K21.9 - Gastro-esophageal reflux disease without esophagitis (8) Cannabis dependence, uncomplicated Current Visit: Yes Status: Chronic (9) Insomnia Current Visit: Yes Status: Chronic (10) Nicotine dependence Current Visit: Yes Status: Chronic Qualifiers: Nicotine product type: cigarettes Substance use status: uncomplicated Qualified Code(s): F17.210 - Nicotine dependence, cigarettes, uncomplicated (11) Substance induced mood disorder Current Visit: Yes Status: Chronic (12) Drug-induced mood disorder Current Visit: No Status: Acute (13) Weight loss Current Visit: No Status: Acute - AMA Did Patient Leave Against Medical Advice: No
[2020-01-04 08:58] VITALS: BP 135/78; PULSE 82; TEMP 97.1
[2020-01-05] MEDS ORDERED: chlordiazePOXIDE HCL 10 MG CAPSULE PO SCH ×2 (05:00→22:00)
[2020-01-06] MEDS ORDERED: chlordiazePOXIDE HCL 10 MG CAPSULE PO ONE (05:00)
== END 2020-01-04 09:24 | disposition home or self-care (01) | DRG 773 ==
LOC: YASAS 14:54 → Y6N 17:51
PROVIDERS: ADMIT Allergy & Immunology; ATTEND Allergy & Immunology
PROC: HZ2ZZZZ Detoxification Services for Substance Abuse Treatment (ICD-10-PCS; principal; 2020-01-01)
DX: F10.230 Alcohol dependence with withdrawal, uncomplicated (principal); F13.230 Sedative, hypnotic or anxiolytic dependence with withdrawal, uncomplicated; F11.23 Opioid dependence with withdrawal; F12.20 Cannabis dependence, uncomplicated; F17.210 Nicotine dependence, cigarettes, uncomplicated; F32.9 Major depressive disorder, single episode, unspecified; F19.24 Other psychoactive substance dependence with psychoactive substance-induced mood disorder; F43.10 Post-traumatic stress disorder, unspecified; B37.0 Candidal stomatitis; E87.6 Hypokalemia; K21.9 Gastro-esophageal reflux disease without esophagitis; G47.00 Insomnia, unspecified; R94.5 Abnormal results of liver function studies; R63.8 Other symptoms and signs concerning food and fluid intake; R23.8 Other skin changes; R63.4 Abnormal weight loss; Z68.29 Body mass index [BMI] 29.0-29.9, adult
CPT/HCPCS: 36415; 80053; 85027; 86780; 93005; 93010; U0003